=== PATIENT | female | born 1995 | race Caucasian/White ===

== ENCOUNTER → 2023-08-02 14:33 | Outpatient (REF) | payer OTHER, SELFPAY | LOC: HWRAD 14:33 | PROVIDERS: ATTENDING PHYSICIAN Nurse Practitioner Family | DX: R10.84 Generalized abdominal pain (principal) | CPT/HCPCS: 74177; Q9967 ==

== ENCOUNTER → 2024-09-17 06:59 | Outpatient (REF) | payer OTHER, SELFPAY | LOC: HWRAD 06:59 | PROVIDERS: ATTENDING PHYSICIAN Internal Medicine Endocrinology, Diabetes & Metabolism; FAMILY PHYSICIAN Nurse Practitioner Family | DX: N20.0 Calculus of kidney (principal); E06.3 Autoimmune thyroiditis; N92.6 Irregular menstruation, unspecified; E53.9 Vitamin B deficiency, unspecified; E61.1 Iron deficiency; F41.9 Anxiety disorder, unspecified; E03.9 Hypothyroidism, unspecified; E22.1 Hyperprolactinemia; J02.9 Acute pharyngitis, unspecified; Z33.1 Pregnant state, incidental | CPT/HCPCS: 76536 ==